=== PATIENT | male | born 1980 | race Caucasian/White ===

== ENCOUNTER 2021-07-26 17:45 | Emergency (ER) | payer OTHER ==
[~2021-07-26 17:45] MED LIST: IMODIUM CAP 2 MG2 MG PO; ZOFRAN ODT 4 MG4 MG PO
[2021-07-26 18:39] LABS: HEMOGLOBIN 18.4 gm/dl (14.0-17.5); RED BLOOD COUNT 6.11 M/UL (4.20-5.50); WHITE BLOOD COUNT 14.2 K/UL (4.5-11.0)
[2021-07-26 18:57] LABS: BUN/CREATININE RATIO 22 (0-10)
[2021-07-26] MEDS ORDERED: ZOFRAN ODT 4 MG4 MG SL (21:19)
== END 2021-07-26 21:30 | disposition home or self-care (01) ==
LOC: ER1 17:45
PROVIDERS: Physician Assistant
DX: K56.7 Ileus, unspecified (principal); K52.9 Noninfective gastroenteritis and colitis, unspecified; F17.200 Nicotine dependence, unspecified, uncomplicated
CPT/HCPCS: 43752; 80053; 83690; 85025; 93005; 99284; Q9967